=== PATIENT | female | born 1960 | race Asian ===

== ENCOUNTER 2022-09-06 08:52 | Outpatient (CLI) | payer BC, SELFPAY ==
--- NOTE | ~2022-09-06 | DEXA_ITS ---
Bone Density Report Name: MARGIE SAMANO Age: 61 Sex: Female Ethnicity: White Date of : 1960 Indication: postmenopausal; screening for osteoporosis; hysterectomy; Referring Provider: TOBIN, ESTEBAN Study: Bone densitometry was performed. Exam Date: September 06, 2022 Accession number: [id number] Bone Density: Region BMD T-score Z-score Classification AP Spine(L1-L4) 0.770 -2.5 -0.9 Osteoporosis Femoral Neck (Left) 0.582 -2.4 -1.0 Osteopenia Total Hip (Left) 0.734 -1.7 -0.6 Osteopenia Femoral Neck (Right) 0.565 -2.6 -1.2 Osteoporosis Total Hip (Right) 0.714 -1.9 -0.8 Osteopenia Total Hip Mean 0.724 -1.8 -0.7 Osteopenia World Health Organization criteria for BMD impression classify patients as: Normal (T-score at or above -1.0), Osteopenia (T-score between -1.0 and -2.5), or Osteoporosis (T-score at or below -2.5). 10-year Fracture Risk: FRAX not reported because: Some T-score for Spine Total or Hip Total or Femoral Neck at or below -2.5 Clinical Information Provided by Patient: Has used the following medications: Vitamin D Has the following medical conditions: Hysterectomy Does not regularly consume dairy products Drinks caffeinated beverages Onset of menses at age 14 Number of children 2 Impression: The patient has osteoporosis, based on the Right Femoral Neck T-score. Discussion: INCREASED RISK OF FRACTURE. BONE DENSITY IS UNDESIRABLY LOW AT ONE OR MORE SKELETAL SITES, CONSISTENT WITH POSTMENOPAUSAL OSTEOPOROSIS. This patient's lowest T-score meets the World Health Organization's (WHO) criteria for osteoporosis at one or more sites (T-score -2.5 or below). In untreated patients, the risk of osteoporotic fracture increases approximately two-fold for each 1.0 SD decrease in T-score. Low bone density is not the only risk factor for fracture; also consider factors such as patient's age, frailty or poor health, risk of falling, risk of injury, previous osteoporotic fracture, family history of osteoporosis, cigarette smoking, low body weight, etc. Not everyone with low bone mineral density has osteoporosis; osteomalacia and other metabolic bone disorders should also be considered. Patients who have osteoporosis should be evaluated for specific diseases and conditions (secondary causes) that may cause or contribute to bone loss. The [place] [employer]ocr[employer] (AACE) and National Osteoporosis Foundation (NOF) recommend pharmacologic intervention for all postmenopausal women whose T-score is in this range. The patient should follow a healthful lifestyle (good nutrition with adequate calcium and vitamin D, and appropriate weight-bearing exercise). Follow-Up: Consider a repeat BMD and Vertebral Fracture Assessment (VFA) exam in 2 years or sooner if medically necess
== END 2022-09-06 08:53 | disposition home or self-care (01) ==
PROVIDERS: Visit Provider Nurse Practitioner
DX: Z78.0 Asymptomatic menopausal state (principal); M85.89 Other specified disorders of bone density and structure, multiple sites; M81.0 Age-related osteoporosis without current pathological fracture
CPT/HCPCS: 77080

== ENCOUNTER 2022-10-11 14:32 | Emergency (ER) | payer BC, SELFPAY ==
--- NOTE | ~2022-10-11 | XR_ITS ---
EXAMINATION: XR knee LT min 4V DATE: 10/11/2022 15:01 INDICATION: Diffuse left knee pain after fall TECHNIQUE: Four views of the left knee were obtained. COMPARISON: None. FINDINGS: There is a large knee joint effusion. There is moderate tricompartmental osteoarthritis of the knee. No fracture is identified. There is soft tissue swelling of the knee. IMPRESSION: 1. Large joint effusion without acute osseous abnormality. Reviewed, dictated and finalized at location B. CLINICAL
--- NOTE | 2022-10-11 14:32 | ED.EXTPRO ---
HPI - Extremity Problem General Stated complaint: left knee pain Time Seen by Provider: 10/11/22 14:32 Source: patient Mode of arrival: ambulatory Limitations: no limitations History of Present Illness HPI Narrative: Ms. Briseno is a 62-year-old female patient presenting to the clinic today with complaints of left knee pain x1 day. She reports she fell and landed on her left knee yesterday. Has pain to the lateral upper left knee. Pain is worse with walking. She states the pain is somewhat better today however she would still like her knee to be looked at Related Data Home Medications Medication Instructions Recorded Confirmed ibandronate 150 mg tablet mg PO 10/11/22 levothyroxine 25 mcg tablet 25 mcg DIRECTED 10/11/22 10/11/22 (Euthyrox) Allergies Allergy/AdvReac Type Severity Reaction Status Date / Time No Known Allergies Allergy Verified 10/19/15 16:55 Review of Systems Review of Systems: Pertinent positives per HPI. Patient denies any fever, chills, rash, headache, visual changes, dizziness, cough, runny nose, sore throat, shortness of breath, chest pain, palpitations, nausea, vomiting, diarrhea, constipation, abdominal pain, or any urinary issues. PMFSH Social History Social History Smoking status: Never smoker Alcohol intake: current Comments At the time of my signature, I reviewed and agree with the nursing past medical, surgical, social, and family history. There is no relevant family history pertinent to the patient complaint. Exam Narrative: General: Well-developed, well nourished, in no apparent distress Head: Normocephalic, atraumatic. Cardio: Regular rate and rhythm, s1 and s2 normal, no murmur appreciated. Resp: Clear to auscultation bilaterally, no rhonchi, rales, wheezing or rubs. Musculoskeletal: No deformity, mild-tender to palpation over the left lateral superior knee, grossly normal range of motion, most painful when walking, muscle strength strong and equal, peripheral pulse strong, no edema, no cyanosis, normal gait and station Course Course Emergency Course: Portions of this record may have been created with voice recognition software. Level of Care: Express Care Visit Vital Signs Vital signs: Vital signs reviewed MDM - Extremity (Nontraumatic) MDM Narrative Medical decision making narrative: At the time of visit patient is resting comfortably on the exam table. x-ray was performed and shows no sign of malalignment or fracture however she does have a large knee effusion. I suspect that the patient sprained her knee when falling. Will give her Lavell wrap and crutches to use for the next few days. Supportive measures were discussed with the patient she voiced understanding discharge instructions and she agrees with the treatment plan Differential Diagnosis Differential diagnosis: Likely other ( knee effusion, knee sprain, knee contusion) Discharge Plan Discharge Clinical Impression: Effusion of knee joint, left Knee pain, left Qualifiers: Chronicity: acute Qualified Code(s): M25.562 - Pain in left knee Patient Disposition: Home, Self-Care Condition: Stable Instructions: Antibiotic Form, Crutch Instructions (ED), Knee Pain (ED) Additional Instructions: Left knee x-ray was negative for any sign of fracture however you do have a large knee effusion Rest, ice, elevate, and wear lavell wrap as directed May take Tylenol/ Motrin as needed for pain Use crutches and gradually bear weight No running or sports until healed. Follow up with your PCP if symptoms persist more than 1 week. Follow-up/Referrals: UNKNOWN,DOCTOR [Primary Care Provider] - Stand Alone Forms: Work/School Release IP Time of Disposition: 15:19 Quality NIHSS Nursing Documentation ED NIHSS nursing documentation: reviewed/agree
[2022-10-11 14:42] VITALS: BP 128/83; PULSE 91; RESP 16; TEMP 37; O2SAT 99
== END 2022-10-11 15:38 | disposition home or self-care (01) ==
PROVIDERS: Emergency Provider Nurse Practitioner Family
DX: M25.462 Effusion, left knee (principal); M25.562 Pain in left knee; W19.XXXA Unspecified fall, initial encounter
CPT/HCPCS: 73564; 99213; G0463

== ENCOUNTER 2022-10-21 07:20 | Outpatient (CLI) | payer BC, SELFPAY ==
--- NOTE | ~2022-10-21 | MM_ITS ---
EXAMINATION: MM screening jan BI w jeri HISTORY: Screening mammogram TECHNIQUE: Craniocaudal and mediolateral oblique 3-D tomosynthesis images were obtained and synthetic 2-D images were generated. CAD analysis was submitted and interpreted. COMPARISON: 05/13/2019, 03/14/2017, 02/24/2016 bilateral screening mammogram examinations BREAST PARENCHYMAL COMPOSITION: There are scattered areas of fibroglandular density..... FINDINGS: Benign small circumscribed opacity in the posterior upper inner left breast, stable since . There is no evidence of suspicious mass, calcification, or architectural distortion to sugg est malignancy in either breast. There has been no suspicious interval change. IMPRESSION: 1. No mammographic evidence of malignancy. 2. Recommend routine screening mammography in one year. BI-RADS Category 2: Benign finding(s). Reviewed, dictated and finalized at location A. CY MANAGER
== END 2022-10-21 07:21 | disposition home or self-care (01) ==
LOC: ANHIMG 07:22
PROVIDERS: Visit Provider Nurse Practitioner
DX: Z12.31 Encounter for screening mammogram for malignant neoplasm of breast (principal)
CPT/HCPCS: 77063; 77067